=== PATIENT | female | born 1930 | race Caucasian/White ===

== ENCOUNTER 2017-11-09 11:33 | Emergency (ER) | payer MEDICARE ==
[~2017-11-09] VITALS: Ht 170.2 cm; Wt 68.0 kg
--- NOTE | 2017-11-09 11:35 | NUR ---
Arrived via [facility] ambulance with compliant of chest pain at time of 911 call. By the time of tail worker arrival she had palpitations only, she felt like something was wrong with her pacemaker. ASA 81mg PO was given enroute. Patient is confused and slightly agitated. Placed in room 1. Placed on cardiac rn, blood pressure machine and pulse oximeter. To gown for exam. Side rails up. Report given to Elvira ABDULLAHI.
--- NOTE | 2017-11-09 11:40 | NUR ---
Pt states her chest felf uncomfortable but denies symptoms now, VSS, afebrile, A&Ox2 , Hx of dementia, cap refill <3.
[2017-11-09 11:44] VITALS: BP_SYST 174
--- NOTE | 2017-11-09 11:55 | NUR ---
Dr Hermosillo at bedside examining patient
[2017-11-09] MEDS ORDERED: NITROGLYCERIN 1 INCH (GM) OINT. TP ONE (12:15)
[2017-11-09] MEDS ORDERED: ASPIRIN 81 MG TAB.CHEW PO ONE (12:15)
[2017-11-09 12:17] LABS: BILIRUBIN,URINE NEGATIVE (NEGATIVE); CLARITY/URINE CLEAR (CLEAR); COLOR,URINE YELLOW (YELLOW); GLUCOSE,URINE NEGATIVE (NEGATIVE); KETONES,URINE NEGATIVE (NEGATIVE); LEUKOCYTE ESTERASE ,URINE NEGATIVE (NEGATIVE); NITRITE, URINE NEGATIVE (NEGATIVE); PROTEIN URINE NEGATIVE (NEGATIVE); UROBILINOGEN,URINE 0.2 (0.2-1.0)
[2017-11-09 12:19] LABS: BLOOD, URINE TRACE (NEGATIVE)
[2017-11-09 12:25] LABS: BASOPHILS % (AUTO) 0.5 % (0.0-2.0); EOSINOPHILS # (AUTO) 0.1 K/uL (0.0-0.4); EOSINOPHILS % (AUTO) 1.3 % (0.0-4.0); HEMOGLOBIN 13.6 g/dL (12.0-16.0); LYMPHOCYTES # (AUTO) 1.3 K/uL (1.0-5.5); LYMPHOCYTES % (AUTO) 18.2 % (20.5-51.5); MEAN CORPUSCULAR HEMOGLOBIN 31 pg (27-31); MEAN CORPUSCULAR HGB CONC 33 % (32-36); MEAN CORPUSCULAR VOLUME 94 fL (79.0-98.0); MONOCYTES # (AUTO) 0.7 K/uL (0.0-1.0); MONOCYTES % (AUTO) 10.5 % (1.7-9.3); NEUTROPHILS % (AUTO) 69.5 % (40.0-70.0); PLATELET COUNT (AUTO) 219 K/uL (130-430); RED BLOOD CELL COUNT(AUTO) 4.38 MIL/uL (4.2-6.2); RED CELL DISTRIBUTION WIDTH 12.5 % (9.0-15.0); WHITE BLOOD COUNT (AUTO) 7.1 K/uL (4.8-10.8)
[2017-11-09 12:33] LABS: ANION GAP 10 (5-15); CALCIUM 9.5 mg/dL (8.4-11.0); CHLORIDE 104 mmol/L (98-107); CREATININE 0.94 mg/dL (0.55-1.30); GLUCOSE 115 mg/dL (70-99); POTASSIUM 3.7 mmol/L (3.5-5.1); SODIUM SERUM 141 mmol/L (136-145); UREA NITROGEN, BLOOD 15 mg/dL (8-21)
[2017-11-09 12:34] LABS: INR 1.2 (0.8-1.2); PROTHROMBIN TIME 11.8 SECS (9.5-12.5)
[2017-11-09 12:35] LABS: BACTERIA,URINE RARE /HPF (None Seen); MUCUS,URINE 1+ /LPF (None Seen); RBC,URINE 0-3 /HPF (0-3); WBC,URINE 0-3 /HPF (0-3)
[2017-11-09 12:38] LABS: ALANINE AMINOTRANSFERASE 29 U/L (12-78); ALBUMIN 4.1 g/dL (3.4-4.8); ASPARTATE AMINOTRANSFERASE 20 U/L (10-37); TOTAL BILIRUBIN 0.6 mg/dL (0.0-1.0)
--- NOTE | 2017-11-09 13:57 | NUR ---
Caregiver at bedside
--- NOTE | 2017-11-09 13:57 | NUR ---
Pt denies chest pain at this time, VS WNL, respirations even and unlabored
[2017-11-09] MEDS ORDERED: QUEtiapine FUMARATE 25 MG TABLET PO STA (14:05)
[2017-11-09] MEDS ORDERED: DIGOXIN 0.25 MG TABLET PO ONE ×2 (14:15)
--- NOTE | 2017-11-09 14:30 | NUR ---
Per Dr Hermosillo order Digoxin 0.5 mg needs to be administered , medication given as ordered, well tolerated.
[2017-11-09 15:04] VITALS: BP_SYST 160
--- NOTE | 2017-11-09 15:09 | NUR ---
Patient given written and verbal discharge instructions and verbalizes understanding. ER MD discussed with patient the results and treatment provided. Patient in stable condition. ID arm band removed. IV catheter removed intact and dressing applied, no active bleeding. No prescriptions given. Patient educated on pain management and to follow up with PMD. Pain Scale 0/10 Opportunity for questions provided and answered. Medication side effect fact sheet provided.
== END 2017-11-09 15:04 | disposition home or self-care (01) ==
LOC: SED 11:33 → EDBD 11:33 → SED 15:04
DX: I48.2 Chronic atrial fibrillation (principal); Z91.048 Other nonmedicinal substance allergy status
CPT/HCPCS: 36415; 71045; 80053; 80162-TC; 81000-TC; 83880; 84439; 84484; 85025; 85610-TC; 93005; 99285